=== PATIENT | female | born 1960 | race Two or more races ===

== ENCOUNTER → 2021-08-29 | Outpatient (CLI) | payer SELFPAY ==
--- NOTE | 2021-08-29 14:00 | EMB_PTH ---
PATIENT: ADRIÁN MUNGUIA LOC: [facility] U#:[id number] AGE/SX: 61/F ROOM: RE08/29/[address]: Dr. Juan Francisco Day MD : 1960 BED: DIS: 08/29/2021 SPEC #: [id number] RECD: 08/29/21 15:10 STATUS: HUMPHREY MINDI #: [id number] BECCA: 08/29/21 14:[address]: Juan Francisco Day DEPT: SURGICAL PATHOLOGY RECD BY: Norma Rasmussen Tissues: A - Endometrium, NOS B - POLYP Procedures: Surgery Specimen Level IV HEADER OPERATION: Endometrial biopsy / polypectomy PRE-OP DIAGNOSIS: N95.0 polyp TISSUE SUBMITTED: A ? Endometrial biopsy, B ? Polyp removal MICROSCOPIC DIAGNOSIS A. Endometrial biopsy: Superficial fragments of benign endometrial tissue. B. Polyp, polypectomy: Fragments of inflamed benign endocervical polyp with focal squamous metaplasia. SJ:kaitlyn 08/31/2021 MICROSCOPIC DESCRIPTION Slides are reviewed. GROSS DESCRIPTION A - Received in fixative is one container labeled with the patient's name and designated endometrial biopsy. The specimen consists of multiple irregular fragments of pink-marie soft tissue that in aggregate measure 1.5 x 1 x <0.1 cm. The specimen is totally submitted in one cassette. B - Received in fixative is one container labeled with the patient's name and designated polyp. The specimen consists of multiple irregular fragments of pink-marie soft tissue that in aggregate measure 1.5 x 1 x 0.1 cm. The specimen is totally submitted in one cassette. / AM:kaitlyn 08/30/2021 TC:5 CPT: 76442 x2
[2021-09-05 14:33] LABS: HPV Reflexed? NOT INDICATED
== END | disposition home or self-care (01) ==
LOC: LABSPEC 14:35
PROVIDERS: Visit Provider Obstetrics & Gynecology
DX: N95.0 Postmenopausal bleeding (principal); N84.1 Polyp of cervix uteri
CPT/HCPCS: 88175; 88305; G0145